=== PATIENT | female | born 1970 | race Caucasian/White ===

== ENCOUNTER 2017-04-29 15:26 | Emergency (ER) | payer MEDICAID ==
[~2017-04-29] VITALS: Ht 167.6 cm; Wt 72.6 kg
[2017-04-29 15:52] VITALS: BP 136/93
[2017-04-29] MEDS ORDERED: HYDROmorphone HCL 2 MG/ML VL IM ONE (16:00)
[2017-04-29] MEDS ORDERED: ONDANSETRON HCL 4 MG/2 ML VIAL IM ONE (16:00)
== END 2017-04-29 16:34 | disposition home or self-care (01) ==
LOC: ER 15:28
DX: S39.012A Strain of muscle, fascia and tendon of lower back, initial encounter (principal); J45.909 Unspecified asthma, uncomplicated; J44.9 Chronic obstructive pulmonary disease, unspecified; Z98.51 Tubal ligation status; F17.210 Nicotine dependence, cigarettes, uncomplicated; X58.XXXA Exposure to other specified factors, initial encounter; Y93.89 Activity, other specified; Y99.8 Other external cause status; Y92.89 Other specified places as the place of occurrence of the external cause
CPT/HCPCS: 96372; 99284; J1170; J2405

== ENCOUNTER 2020-08-15 10:54 | Emergency (ER) | payer MEDICAID ==
[~2020-08-15] VITALS: Ht 165.1 cm; Wt 74.8 kg
[2020-08-15 11:00] VITALS: BP 135/85
[2020-08-15] MEDS ORDERED: KETOROLAC TROMETH 60MG/2ML VIAL IM ONE (12:00)
[2020-08-15] MEDS ORDERED: methylPREDNISolone SOD SUCC 125 MG/2 ML VL IM ONE (12:00)
[2020-08-15] MEDS ORDERED: PRE1T GT (12:45)
== END 2020-08-15 12:58 | disposition home or self-care (01) ==
LOC: ER 10:54
DX: S29.012A Strain of muscle and tendon of back wall of thorax, initial encounter (principal); J44.9 Chronic obstructive pulmonary disease, unspecified; F17.210 Nicotine dependence, cigarettes, uncomplicated; X58.XXXA Exposure to other specified factors, initial encounter; Y93.89 Activity, other specified; Y92.89 Other specified places as the place of occurrence of the external cause; Y99.8 Other external cause status
CPT/HCPCS: 72040; 96372; 99284; J1885; J2930

== ENCOUNTER 2021-02-24 21:19 | Emergency (ER) | payer MEDICAID ==
[~2021-02-24] VITALS: Ht 165.1 cm; Wt 77.1 kg
[~2021-02-24 21:19] MED LIST: PRE1T GT
[2021-02-24 21:22] VITALS: BP 134/74
== END 2021-02-24 23:50 | disposition left against medical advice (07) ==
LOC: ER 21:24
DX: M79.605 Pain in left leg (principal); Z53.21 Procedure and treatment not carried out due to patient leaving prior to being seen by health care provider

== ENCOUNTER 2021-02-26 20:01 | Emergency (ER) | payer MEDICAID ==
[~2021-02-26] VITALS: Ht 165.1 cm; Wt 77.1 kg
[2021-02-26 20:03] VITALS: BP 96/63
[2021-02-26] MEDS ORDERED: KETOROLAC TROMETH 60MG/2ML VIAL IM ONE (22:00)
== END 2021-02-26 22:05 | disposition home or self-care (01) ==
LOC: ER 20:02
DX: M76.32 Iliotibial band syndrome, left leg (principal); J44.9 Chronic obstructive pulmonary disease, unspecified
CPT/HCPCS: 73552; 93971; 96372; 99284; J1885

== ENCOUNTER 2022-03-06 16:12 | Emergency (ER) | payer MEDICAID ==
[~2022-03-06] VITALS: Ht 165.1 cm; Wt 77.1 kg
[2022-03-06 16:16] VITALS: BP 129/85
[2022-03-06] MEDS ORDERED: SUMAtriptan SUCCINATE 6 MG/0.5 ML VL SC ONE (16:30)
[2022-03-06] MEDS ORDERED: SUMA50TA2 PO (17:04)
== END 2022-03-06 17:17 | disposition home or self-care (01) ==
LOC: ER 16:12
DX: G43.909 Migraine, unspecified, not intractable, without status migrainosus (principal)
CPT/HCPCS: 70450; 96372; 99284; J3030

== ENCOUNTER 2022-04-04 19:25 | Emergency (ER) | payer MEDICAID ==
[~2022-04-04] VITALS: Ht 165.1 cm; Wt 79.4 kg
[~2022-04-04 19:25] MED LIST changes: +SUMA50TA2 PO
[2022-04-04] MEDS ORDERED: ONDANSETRON ODT 4 MG TAB PO ONE (19:45)
[2022-04-04] MEDS ORDERED: HYDROmorphone HCL 2 MG/ML VL/or syr IM ONE (19:45)
[2022-04-04 19:56] VITALS: BP 109/48
[2022-04-04] MEDS ORDERED: HYDR-4902 PO (20:02)
== END 2022-04-04 20:05 | disposition home or self-care (01) ==
LOC: ER 19:25
DX: G43.909 Migraine, unspecified, not intractable, without status migrainosus (principal); J44.9 Chronic obstructive pulmonary disease, unspecified; F17.210 Nicotine dependence, cigarettes, uncomplicated; Z79.899 Other long term (current) drug therapy

== ENCOUNTER 2022-12-04 21:47 | Emergency (ER) | payer MEDICAID ==
[~2022-12-04] VITALS: Ht 165.1 cm; Wt 76.5 kg
[~2022-12-04 21:47] MED LIST changes: +HYDR-4902 PO
[2022-12-04] MEDS ORDERED: ONDANSETRON ODT 4 MG TAB PO ONE (22:15)
[2022-12-04] MEDS ORDERED: HYDROmorphone HCL 2 MG/ML VL/or syr IM ONE (22:15)
[2022-12-05] MEDS ORDERED: HYDROmorphone HCL 2 MG/ML VL/or syr IM ONE (00:30)
[2022-12-05 00:43] VITALS: BP 100/65
== END 2022-12-05 00:51 | disposition home or self-care (01) ==
LOC: ER 21:47
DX: R51.9 Headache, unspecified (principal); J44.9 Chronic obstructive pulmonary disease, unspecified; F17.210 Nicotine dependence, cigarettes, uncomplicated
CPT/HCPCS: 70450; 96372; 99285; J1170; Q0162

== ENCOUNTER 2023-01-27 09:34 | Inpatient (IN) | payer MEDICAID ==
[~2023-01-27] VITALS: Ht 165.1 cm; Wt 85.3 kg
[2023-01-27] MEDS ORDERED: PROMETHAZINE HCL 25 MG/ML 1ML IV ONE (10:30)
[2023-01-27] MEDS ORDERED: HYDROmorphone HCL 2 MG/ML VL/or syr IV ONE (10:30)
[2023-01-27 13:06] LABS: Basophils # (auto) 0 10 ^3/uL (0-0.2); Basophils % (auto) 0.7 % (0.0-2.0); Eosinophils # (auto) 0.1 10 ^3/uL (0-0.8); Hematocrit 40.1 % (36.0-46.0); Hemoglobin 13.2 g/dL (12.2-16.2); Lymphocytes # (auto) 2.5 10 ^3/uL (0.4-5.4); Lymphocytes % (auto) 41.6 % (10.0-50.0); Mean Corpuscular Hemoglobin 31.1 pg (28.0-32.0); Mean Corpuscular Hgb Conc. 32.9 g/dL (32.0-36.0); Mean Corpuscular Volume 94.4 fL (80.0-100.0); Monocytes # (auto) 0.4 10 ^3/uL (0-1.3); Monocytes % (auto) 6.7 % (0.0-12.0); Red Blood Cells 4.25 10^6/uL (4.0-5.20); Red Cell Distribution Width 13.3 % (11.8-14.3); White Blood Cell 5.9 10^3/uL (4.4-10.8)
[2023-01-27 13:41] LABS: Albumin 3.7 g/dL (3.4-5.0); Potassium 4.2 mmol/L (3.5-5.1)
[2023-01-27 13:45] LABS: Bilirubin, Total 0.4 mg/dL (0.2-1.0)
[2023-01-27 14:25] VITALS: BP 119/60
[2023-01-27] MEDS ORDERED: ALBUTEROL SULF 2.5 MG/0.5ML(0.5%) NEB SOLN NEB PRN (14:30)
[2023-01-27] MEDS ORDERED: SUMAtriptan SUCCINATE 25 MG TAB PO PRN (14:45)
[2023-01-27] MEDS ORDERED: ACETAMINOPHEN 325 MG TAB PO PRN (14:45)
[2023-01-27] MEDS ORDERED: MORPHINE SULFATE INJ 2 MG/ml SYRG IV PRN (14:45)
[2023-01-27] MEDS ORDERED: PANTOPRAZOLE 40 MG/10 ML VIAL INJ IV ONE (14:45)
[2023-01-27] MEDS ORDERED: NITROGLYCERIN 0.4 MG SL TAB SL PRN (14:45)
[2023-01-27] MEDS: SODIUM CHLORIDE 0.9% 1,000 ML IV SCH ×2 (14:50→21:30)
[2023-01-27 15:21] LABS: Cholesterol 181 mg/dL (< 200); HDL Cholesterol 48 mg/dL (40-59); LDL Cholesterol 117 mg/dL (< 100); Triglycerides 158 mg/dL (< 150)
[2023-01-27 16:22] LABS: Urine Bacteria FEW /hpf (None Seen); Urine Blood Negative /uL (Negative); Urine Specific Gravity 1.007 (1.001-1.035); Urine WBC 1 /hpf (0 - 5)
[2023-01-27] MEDS ORDERED: ASPirin 325 MG TAB PO ONE (18:00)
[2023-01-27] MEDS: HYDROcodone-ACET 5/325MG TAB PO PRN (19:30)
[2023-01-27] MEDS ORDERED: PROCHLORPERAZINE EDISYLATE 5 MG/ML 2ML VIAL IV PRN (21:30)
[2023-01-27] MEDS: ATORVASTATIN 20 MG TAB PO SCH (22:58)
[2023-01-28] MEDS: SODIUM CHLORIDE 0.9% 1,000 ML IV SCH ×3 (03:18→08:38)
[2023-01-28 06:32] LABS: Basophils # (auto) 0.1 10 ^3/uL (0-0.2); Basophils % (auto) 0.9 % (0.0-2.0); Eosinophils # (auto) 0.1 10 ^3/uL (0-0.8); Eosinophils % (auto) 0.8 % (0.0-7.0); Hematocrit 31.9 % (36.0-46.0); Hemoglobin 11.2 g/dL (12.2-16.2); Lymphocytes # (auto) 2.8 10 ^3/uL (0.4-5.4); Lymphocytes % (auto) 43.9 % (10.0-50.0); Mean Corpuscular Hemoglobin 32.4 pg (28.0-32.0); Mean Corpuscular Volume 92.6 fL (80.0-100.0); Monocytes # (auto) 0.4 10 ^3/uL (0-1.3); Monocytes % (auto) 6.9 % (0.0-12.0); Neutrophils # (auto) 3.1 10 ^3/uL (1.6-8.6); Neutrophils % (auto) 47.5 % (37.0-80.0); Red Blood Cells 3.45 10^6/uL (4.0-5.20); Red Cell Distribution Width 13.2 % (11.8-14.3); White Blood Cell 6.4 10^3/uL (4.4-10.8)
[2023-01-28 06:41] LABS: Potassium 4.1 mmol/L (3.5-5.1)
[2023-01-28 06:55] LABS: Albumin 3.1 g/dL (3.4-5.0); BUN/Creatinine Ratio 13.8 (10.0-20.0); Bilirubin, Total 0.5 mg/dL (0.2-1.0); Calcium 8.1 mg/dL (8.5-10.1); Total Protein 5.6 g/dL (6.4-8.2)
[2023-01-28] MEDS: ASPirin 81 mg TAB PO SCH (08:36)
[2023-01-28] MEDS: DexAMETHasone SOD PHOS 10MG/1ML VIAL INJ IV SCH (08:36)
[2023-01-28] MEDS: PANTOPRAZOLE 40 MG/10 ML VIAL INJ IV SCH (08:36)
[2023-01-28] MEDS: HYDROcodone-ACET 5/325MG TAB PO PRN (08:47)
[2023-01-28] MEDS: MAGNESIUM OXIDE 400 MG TAB PO SCH (11:27)
[2023-01-28 17:56] VITALS: BP 95/45
[2023-01-28] MEDS ORDERED: ASPI-543 PO (18:59)
[2023-01-28] MEDS: ATORVASTATIN 20 MG TAB PO SCH (21:59)
[2023-01-28 22:00] VITALS: BP 112/56
[2023-01-29 05:00] VITALS: BP_SYST 101; BP_SYST 105; BP_SYST 116; BP_DIAS 62; BP_DIAS 68; BP_DIAS 71
[2023-01-29] MEDS: SODIUM CHLORIDE 0.9% 1,000 ML IV SCH ×2 (06:40→09:19)
[2023-01-29 09:00] VITALS: BP 118/63
[2023-01-29] MEDS: DexAMETHasone SOD PHOS 10MG/1ML VIAL INJ IV SCH (09:15)
[2023-01-29] MEDS: PANTOPRAZOLE 40 MG/10 ML VIAL INJ IV SCH (09:15)
[2023-01-29] MEDS: MAGNESIUM OXIDE 400 MG TAB PO SCH (09:15)
[2023-01-29] MEDS: ASPirin 81 mg TAB PO SCH (09:15)
[2023-01-29] MEDS ORDERED: MAGN241.4 PO (10:10)
== END 2023-01-29 12:40 | disposition left against medical advice (07) | DRG 54 ==
LOC: ER 09:34 → TELE 14:42 → TELE-WESTW 01-28 20:09
PROVIDERS: ADMIT Nurse Practitioner Family; ATTEND Nurse Practitioner Acute Care
DX: G43.909 Migraine, unspecified, not intractable, without status migrainosus (principal); I67.1 Cerebral aneurysm, nonruptured; F17.210 Nicotine dependence, cigarettes, uncomplicated; J44.9 Chronic obstructive pulmonary disease, unspecified; R00.1 Bradycardia, unspecified; Z20.822 Contact with and (suspected) exposure to COVID-19; Z53.29 Procedure and treatment not carried out because of patient's decision for other reasons; Z80.9 Family history of malignant neoplasm, unspecified
CPT/HCPCS: 36415; 70450; 70545; 70551; 80053; 80061; 81001; 82962; 84443; 85025; 87426; 93005; 93306; 93886; 96374; 96375; 97163; C9113; G0378; J1100

== ENCOUNTER 2023-02-09 18:20 | Emergency (ER) | payer MEDICAID ==
[~2023-02-09] VITALS: Ht 165.1 cm; Wt 80.2 kg
[~2023-02-09 18:20] MED LIST changes: +ASPI-543 PO; +MAGN241.4 PO
[2023-02-09 19:31] LABS: Urine Bacteria NONE SEEN /hpf (None Seen); Urine Blood Negative /uL (Negative); Urine Specific Gravity 1.007 (1.001-1.035); Urine WBC <1 /hpf (0 - 5)
[2023-02-09] MEDS ORDERED: SODIUM CHLORIDE 0.9% 1,000 ML IVB ONE (19:45)
[2023-02-09] MEDS ORDERED: KETOROLAC TROMETH 30 MG/ML 1ML VIAL IV ONE (19:45)
[2023-02-09 20:29] LABS: Alcohol, Urine < 3.0 mg/dL (0-10); Amphetamine Screen, Urine NEGATIVE (NEGATIVE); Barbiturate Scree,Urine NEGATIVE (NEGATIVE); Benzodiazephine Screen, Urine NEGATIVE (NEGATIVE); Cannabinoid Screen, Urine NEGATIVE (NEGATIVE); Cocaine Screen, Urine NEGATIVE (NEGATIVE); Opiate Scree,Urine NEGATIVE (NEGATIVE); Phencyclidine Screen, Urine NEGATIVE (NEGATIVE)
[2023-02-09 21:18] LABS: Basophils # (auto) 0.1 10 ^3/uL (0-0.2); Basophils % (auto) 0.7 % (0.0-2.0); Eosinophils # (auto) 0.1 10 ^3/uL (0-0.8); Eosinophils % (auto) 1.7 % (0.0-7.0); Hematocrit 39.5 % (36.0-46.0); Hemoglobin 13.3 g/dL (12.2-16.2); Lymphocytes # (auto) 3.5 10 ^3/uL (0.4-5.4); Lymphocytes % (auto) 42.6 % (10.0-50.0); Mean Corpuscular Hemoglobin 31.7 pg (28.0-32.0); Mean Corpuscular Hgb Conc. 33.6 g/dL (32.0-36.0); Mean Corpuscular Volume 94.1 fL (80.0-100.0); Monocytes # (auto) 0.6 10 ^3/uL (0-1.3); Monocytes % (auto) 7.6 % (0.0-12.0); Neutrophils # (auto) 3.9 10 ^3/uL (1.6-8.6); Neutrophils % (auto) 47.4 % (37.0-80.0); Nucleated Red Blood Cells % 0.1 %; Red Cell Distribution Width 13.9 % (11.8-14.3); White Blood Cell 8.2 10^3/uL (4.4-10.8)
[2023-02-09 21:32] LABS: INR 0.97 (0.9-1.15); Partial Thromboplastin Time 25.6 sec (24.6-33.4)
[2023-02-09 21:35] LABS: Albumin 3.7 g/dL (3.4-5.0); BUN/Creatinine Ratio 15.8 (10.0-20.0); Calcium 9.1 mg/dL (8.5-10.1); Potassium 3.9 mmol/L (3.5-5.1)
[2023-02-09 21:37] LABS: Bilirubin, Total 0.3 mg/dL (0.2-1.0); Total Protein 7.2 g/dL (6.4-8.2)
[2023-02-09] MEDS ORDERED: IBUP800T27 PO (22:06)
[2023-02-09 22:50] VITALS: BP 136/68
[2023-02-09] MEDS ORDERED: KETOROLAC TROMETH 60MG/2ML VIAL IM ONE (23:00)
== END 2023-02-09 22:55 | disposition home or self-care (01) ==
LOC: ER 18:20
DX: K80.20 Calculus of gallbladder without cholecystitis without obstruction (principal); R10.2 Pelvic and perineal pain; J44.9 Chronic obstructive pulmonary disease, unspecified; Z98.51 Tubal ligation status
CPT/HCPCS: 36415; 74176; 80053; 80307; 81001; 83605; 83690; 84702; 85025; 85610; 85730; 96372; 99285; J1885

== ENCOUNTER 2023-07-03 22:48 | Emergency (ER) | payer MEDICAID ==
[~2023-07-03] VITALS: Ht 165.1 cm; Wt 82.2 kg
[~2023-07-03 22:48] MED LIST changes: +IBUP-1456 PO
[2023-07-03 23:38] VITALS: BP 124/67; PULSE 82; RESP 16; TEMP 97.4; O2SAT 96
[2023-07-04] MEDS ORDERED: DOXY-447 PO (00:34)
[2023-07-08] MEDS ORDERED: HYDR25CA PO (20:40)
[2023-07-08] MEDS ORDERED: FAMO20TA10 PO (20:40)
[2023-07-08] MEDS ORDERED: CLIN300C70 PO (20:40)
[2023-07-08] MEDS ORDERED: PRED20TA2 PO (20:40)
== END 2023-07-04 00:44 | disposition home or self-care (01) ==
LOC: ER 22:48
DX: L03.311 Cellulitis of abdominal wall (principal); S90.561A Insect bite (nonvenomous), right ankle, initial encounter; J44.9 Chronic obstructive pulmonary disease, unspecified; Z98.890 Other specified postprocedural states; Z79.1 Long term (current) use of non-steroidal anti-inflammatories (NSAID); Z79.82 Long term (current) use of aspirin; Z79.899 Other long term (current) drug therapy

== ENCOUNTER 2023-11-04 08:07 | Inpatient (IN) | payer MEDICAID ==
[~2023-11-04] VITALS: Ht 165.1 cm; Wt 80.0 kg
[~2023-11-04 08:07] MED LIST changes: +CLIN300C70 PO; +DOXY-447 PO; +FAMO20TA10 PO; +HYDR25CA PO; +PRED20TA2 PO
[2023-11-04 08:40] VITALS: PULSE 78; RESP 25; TEMP 98.1; O2SAT 99
[2023-11-04] MEDS ORDERED: PROMETHAZINE HCL 25 MG/ML 1ML IV ONE (08:45)
[2023-11-04] MEDS ORDERED: HYDROmorphone HCL 2 MG/ML VL/or syr IV ONE (08:45)
[2023-11-04 09:30] LABS: Basophils # (auto) 0.1 10 ^3/uL (0-0.2); Basophils % (auto) 0.9 % (0.0-2.0); Eosinophils # (auto) 0.1 10 ^3/uL (0-0.8); Eosinophils % (auto) 1.9 % (0.0-7.0); Hematocrit 42.5 % (36.0-46.0); Lymphocytes # (auto) 2.5 10 ^3/uL (0.4-5.4); Lymphocytes % (auto) 38.6 % (10.0-50.0); Mean Corpuscular Hemoglobin 31.8 pg (28.0-32.0); Mean Corpuscular Hgb Conc. 33.1 g/dL (32.0-36.0); Mean Corpuscular Volume 96.2 fL (80.0-100.0); Monocytes # (auto) 0.6 10 ^3/uL (0-1.3); Monocytes % (auto) 8.7 % (0.0-12.0); Neutrophils # (auto) 3.2 10 ^3/uL (1.6-8.6); Neutrophils % (auto) 49.9 % (37.0-80.0); Nucleated Red Blood Cells % 0.1 %; Red Blood Cells 4.41 10^6/uL (4.0-5.20); Red Cell Distribution Width 13.4 % (11.8-14.3); White Blood Cell 6.4 10^3/uL (4.4-10.8)
[2023-11-04] MEDS ORDERED: hydrALAZINE HCL 20 MG/ML VL IV ONE (09:30)
[2023-11-04 09:39] LABS: Chloride 109 mmol/L (98-107); Potassium 3.4 mmol/L (3.5-5.1); Sodium 143 mmol/L (136-145)
[2023-11-04 09:40] LABS: Anion Gap 9 (5-15); Calcium 9.7 mg/dL (8.5-10.1); Carbon Dioxide 25 mmol/L (20-30)
[2023-11-04 09:45] LABS: BUN/Creatinine Ratio 6.2 (10.0-20.0); Blood Urea Nitrogen < 5 mg/dL (9-23); Glucose 96 mg/dL (74-106)
[2023-11-04] MEDS ORDERED: ALBUTEROL SULF 2.5 MG/0.5ML(0.5%) NEB SOLN NEB PRN (12:00)
[2023-11-04] MEDS ORDERED: IPRATROPIUM BROM 0.5 MG/2.5ML INH SOL NEB PRN (12:00)
[2023-11-04] MEDS ORDERED: ONDANSETRON HCL 4 MG/2 ML VIAL IV PRN (12:00)
[2023-11-04] MEDS ORDERED: SODIUM CHLORIDE 0.9% 1,000 ML IV SCH (12:00)
[2023-11-04] MEDS ORDERED: HYDROmorphone HCL 2 MG/ML VL/or syr IV PRN (12:00)
[2023-11-04] MEDS ORDERED: POTASSIUM EFFERVESENT TAB 25 MEQ PO ONE (12:00)
[2023-11-04] MEDS ORDERED: DOCUSATE SOD 100 MG CAP PO PRN (12:00)
[2023-11-04] MEDS ORDERED: SUMAtriptan SUCCINATE 25 MG TAB PO PRN (12:30)
[2023-11-04 13:50] VITALS: BP 118/74; PULSE 103; RESP 24; O2SAT 93
[2023-11-04 14:01] LABS: Urine Bacteria FEW /hpf (None Seen); Urine Blood Negative /uL (Negative); Urine Clarity HAZY (Clear); Urine Mucus FEW (None Seen); Urine Protein, UAD Negative (Negative); Urine Specific Gravity 1.007 (1.001-1.035); Urine Urobilinogen Normal (Negative); Urine WBC 3 /hpf (0 - 5); Urine pH 5.5 (5.0-8.0)
[2023-11-04 14:04] LABS: Urine Color STRAW (Yellow)
[2023-11-04 14:20] VITALS: O2SAT 92
[2023-11-04] MEDS ORDERED: FAMOTIDINE 20 MG TAB PO SCH (22:00)
[2023-11-05] MEDS ORDERED: ASPirin-EC 81 mg tab PO SCH (10:00)
== END 2023-11-04 14:49 | disposition left against medical advice (07) | DRG 47 ==
LOC: ER 08:07 → OVERFLOW 12:03
PROVIDERS: ADMIT Nurse Practitioner Family; ATTEND Nurse Practitioner Family
DX: G45.9 Transient cerebral ischemic attack, unspecified (principal); J44.1 Chronic obstructive pulmonary disease with (acute) exacerbation; R51.9 Headache, unspecified; F17.210 Nicotine dependence, cigarettes, uncomplicated; I10 Essential (primary) hypertension; M47.9 Spondylosis, unspecified; E87.6 Hypokalemia; Z53.29 Procedure and treatment not carried out because of patient's decision for other reasons; Z80.8 Family history of malignant neoplasm of other organs or systems; Z83.3 Family history of diabetes mellitus
CPT/HCPCS: 36415; 70450; 80048; 81001; 85025; 96374; 96375; G0378

== ENCOUNTER 2025-06-15 11:53 | Emergency (ER) | payer MEDICAID, SELFPAY ==
[~2025-06-15] VITALS: Ht 165.1 cm; Wt 78.1 kg
[~2025-06-15 11:53] MED LIST changes: +CLIN1CAP70 PO; -CLIN300C70 PO; -DOXY-447 PO; +DOXY1CAP58 PO
--- NOTE | 2025-06-15 13:07 | ED.PDOC ---
Eye-HPI HPI Comments A 55 YEAR OLD FEMALE PRESENTS TO THE ED WITH COMPLAINT OF SORE THROAT, EAR PAIN, HEADACHE. PATIENT STATES SHE HAS BEEN EXPERIENCING A SORE THROAT, EAR PAIN AND A HEADACHE FOR THE PAST 2 DAYS. PATIENT REPORTS SHE WAS SENT TO THIS ED BY AN URGENT CARE DUE TO HER HISTORY OF A BRAIN INJURY IN THE PAST. PATIENT DENIES FEVER, CHILLS, SHORTNESS OF BREATH, CHEST PAIN, ABDOMINAL PAIN, NAUSEA, VOMITING, HEADACHE, OR OTHER COMPLAINTS. NO OTHER SYMPTOMS OR MODIFYING FACTORS AT THIS TIME. PATIENT IS ALERT, ORIENTED X 4, AND HAS STEADY GAIT. Chief Complaint: Headache Time Seen by MD: 12:16 Primary Care Provider: JEMMA Reviewed Notes: Nurses Notes, Medications, Allergies Allergies: Coded Allergies: NO KNOWN ALLERGIES (Unverified , 09/17/12) Home Meds Active Scripts Ibuprofen (Ibuprofen) 800 Mg Tab, 1 TAB PO TID, #30 TAB Prov:YOBANI HUNT 06/15/25 Amoxicillin & Pot Clavulanate (AUGMENTIN TABLET) 875 Mg Tb, 875 MG PO BID, #20 TAB Prov:YOBANI HUNT 06/15/25 Famotidine (PEPCID TABLET) 20 Mg Tb, 1 TAB PO BID for 10 Days, #20 TAB Prov:MATILDA JOLLY [employer] 07/08/23 Hydroxyzine Pamoate (Vistaril) 25 Mg Cap, 1 CAP PO Q8HR, #20 CAP 1 Refill As needed for itching Prov:MATILDA JOLLY [employer] 07/08/23 Prednisone (Prednisone) 20 Mg Tab, 1 TAB PO BID for 5 Days, #10 TAB Start tomorrow with food Prov:MATILDA JOLLY [employer]STRU[employer] 07/08/23 Clindamycin Hcl (Clindamycin Hcl) 300 Mg Cap, 1 CAP PO QID for 10 Days, #40 CAP Prov:SHANAEJUNELISSET Hendrickson [employer] 07/08/23 Doxycycline (Monohydrate) (Doxycycline) 100 Mg Cap, 100 MG PO BID for 7 Days, #14 CAP 0 Refills Prov:MK JOSEPH 07/04/23 Ibuprofen (Ibuprofen) 800 Mg Tab, 1 TAB PO TID PRN for 10 Days, #30 TAB Prov:SHASHANK BURGESS DO 02/09/23 Magnesium Oxide (Mag-Ox) 400 Mg Tb, 400 MG PO DAILY for 60 Days, #60 TAB Prov:OSWALDO LANDIS NP 01/29/23 Hydrocodone-Acetaminophen (Hydrocodone Bitartrate/AC 5-325 mg) 1 Tab Tab, 1 TAB PO Q6HP PRN for 7 Days, #28 TAB Prov:MJ DOUGHERTY MD 04/04/22 Sumatriptan Succinate (Imitrex) 50 Mg Tab, 50 MG PO TID PRN, #24 TAB Prov:YOBANI HUNT 03/06/22 Reported Medications Aspirin (Aspir-Low) 81 Mg Tab, 81 MG PO DAILY for 30 Days, MG 01/28/23 Prednisone (PREDNISONE) 1 Mg Tb, 1 MG GT, TAB 08/15/20 Information Source: Patient Mode of Arrival: Ambulatory Timing: Days Duration: Since onset, Days Prehospital treatment: None Quality: Pain, Red Lids: Normal Conjunctiva: Normal Cornea: Normal Pupils: Normal EOM: Normal Slit lamp exam: Normal Anterior chamber: Normal Mouth Location: Pharynx Mouth: Normal ENT Ear Exam: Normal, Red, Bulging, Dull, Normal Nose: Normal Sinuses: Normal Oropharynx: Tonsillar hypertrophy, Red Onset: Spontaneous Throat Exposed to: None History of: None Last Tetanus: Unknown Modifying factors: Nothing Associated signs and symptoms: Sore Throat, Ear Pain Past Medical History PAST MEDICAL HISTORY: Asthma, COPD Past Medical History (Other): BRAIN INJURY Surgical History: [employer]TL 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 History: No Pertinent EN[employer]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 History Family History Family History: Reviewed,noncontributory to illness, Family hx of Cancer Social History Smoker: Cigarettes Alcohol: Occasionally Drugs: Denies Drug Use Lives In: Home Constitutional: denies: chills, diaphoresis, fatigue, fever, malaise, sweats, weakness, others EENTM: reports: ear pain, ear ringing, throat pain, throat swelling; denies: blurred vision, double vision, ear bleeding, ear discharge, ear drainage, eye pain, eye redness, hearing loss, mouth pain, mouth swelling, nasal discharge, nose bleeding, nose congestion, nose pain, photophobia, tearing, voice changes, others Respiratory: denies: cough, hemoptysis, orthopnea, SOB at rest, shortness of breath, SOB with excertion, stridor, wheezing, others Cardiovascular: denies: chest pain, dizzy spells, diaphoresis, Dyspnea on exertion, edema, irregular heart beat, left arm pain, lightheadedness, palpitations, PND, syncope, others Gastrointestinal: denies: abdomen distended, abdominal pain, blood streaked bowels, constipated, diarrhea, dysphagia, difficulty swallowing, hematemesis, melena, nausea, poor appetite, poor fluid intake, rectal bleeding, rectal pain, vomiting, others Genitourinary: denies: abnormal vagina bleeding, burning, dyspareunia, dysuria, flank pain, frequency, hematuria, incontinence, pain, , vagina discharge, urgency, others Neurological: reports: headache; denies: dizziness, fainting, left sided numbness, left sided weakness, numbness, paresthesia, pre-existing deficit, right sided numbness, right sided weakness, seizure, speech problems, tingling, tremors, weakness, others Musculoskeletal: denies: back pain, gout, joint pain, joint swelling, muscle pain, muscle stiffness, neck pain, others Integumetry: denies: bruises, change in color, change in hair/nails, dryness, laceration, lesions, lumps, rash, wounds, others Allergic/Immunocompromised: denies: Difficulty Healing, Frequent Infections, Hives, Itching, others Hematologic/Lymphatic: denies: anemia, blood clots, easy bleeding, easy bruising, swollen glands, others Endocrine: denies: excessive hunger, excessive sweating, excessive thirst, excessive urination, flushing, intolerance to cold, intolerance to heat, unexplained weight gain, unexplained weight loss, others Psychiatric: denies: anxiety, bipolar disorder, depression, hopeless, panic disorder, schizophrenia, sleepless, suicidal, others All Other Systems: Reviewed and Negative Physical Exam General Appearance: No Apparent Distress, Normal HEENT: PERRL/EOMI, Pharyngeal Erythema (MILD TONSILIS SWELLING, NO EXUDATES. ), TM Abnormal (L) (WITH EFFUSION ), TM Abnormal (R) (WITH MILD EFFUSION. ) Neck: Full Range of Motion, Non-Tender, Normal, Normal Inspection Respiratory: Chest Non-Tender, Lungs Clear, No Accessory Muscle Use, No Respir atory Distress, Normal Breath Sounds Cardiovascular: No Edema, No JVD, No Murmur, No Gallop, Normal Peripheral Pulses, Regular Rate/Rhythm Breast Exam: Deferred Gastrointestinal: No Organomegaly, Non Tender, No Pulsatile Mass, Normal Bowel Sounds, Soft Genitalia: Deferred Pelvic: Deferred Rectal: Deferred Extremities: No calf tenderness, Normal capillary refill, Normal inspection, Normal range of motion, Non-tender, No pedal edema Musculoskeletal : Apperance: Normal Neurologic: Alert, hse specialist II-XII nml as Tested, No Motor Deficits, Normal Affect, Normal Mood, No Sensory Deficits Cerebellar Function: Normal Reflexes: Normal Skin: Dry, Normal Color, Warm Peripheral Pulses: 2+ carotid (R), 2+ carotid (L) Lymphatic: No Adenopathy Was a procedure done? Was a procedure done?: No EENT DIFF Eye: N/A Ear: Cerumen Impaction, Otitis Externa, Otitis Media, Pharyngitis, Sinusitis Nose: N/A Mouth: N/A Sore Throat: Pharyngitis, Streptococcal, Viral Pharyngitis, URI X-Ray, Labs, Meds, VS Vital Signs Date Time Temp Pulse Resp B/P (MAP) Pulse Ox O2 Delivery O2 Flow Rate FiO2 06/15/25 13:22 98.3 84 14 97/68 (78) 97 98.3 06/15/25 13:22 84 14 97 Room Air 06/15/25 11:56 97.7 97 16 104/68 78 97.7 EXAM: CT HEAD WITHOUT CONTRAST INDICATION: HEADACHE TECHNIQUE: CT images of the head were obtained without administration of IV contrast. CT scans at this facility use dose modulation, iterative reconstruction, and/or weight based dosing when appropriate to reduce radiation dose to as low as reasonably achievable. COMPARISON: CT HEAD WITHOUT CONTRAST on DOS: 01/17/24 FINDINGS: PARENCHYMA: No acute hemorrhage. There is no mass effect, midline shift, or herniation. There is preservation of the cruz white differentiation. VENTRICLES: No hydrocephalus. EXTRA-AXIAL SPACES: No extra-axial fluid collections. OTHER: The bony structures are intact. Mild scattered paranasal sinus mucosal thickening. IMPRESSION: 1. No CT evidence of an acute intracranial abnormality. ATED BY: JESSICA MENJIVAR MD DICTATED DATE/TIME: 06/15/25 1308 SIGNED BY: JESSICA MENJIVAR MD SIGNED DATE/TIME: 06/15/25 1308 CC: X-Ray, Labs, Meds, VS Comment EXTERNAL MEDICAL RECORDS REVIEWED: [NONE] INDEPENDENT HISTORIANS: [NONE] SOCIAL DETERMINANTS OF HEALTH: [NONE] LABS ORDERED: NONE REVIEWED AND INTERPRETED RESULTS: NONE IMAGING ORDERED: CT BRAIN TREATMENTS ORDERED: NONE PROCEDURES PERFORMED: NONE CRITICAL CARE TIME: NONE I HAVE DISCUSSED THE PATIENT WITH THE ATTENDING PHYSICIAN DR. PH[place] AND HE AGREES WITH THE PATIENT'S PLAN OF CARE AND DISPOSITION. BASED ON HISTORY OF PRESENT ILLNESS, AND PHYSICAL EXAM, PATIENT WILL BE DISCHARGED HOME. DISCUSSED PLAN FOR DISCHARGE HOME WITH RX [AUGMENTIN AND IBUPROFEN 800 MG]. MEDICATION WARNINGS GIVEN. SHARED DECISION MAKING: DISCUSSED WITH PATIENT THAT THEIR WORKUP WAS NORMAL. PATIENT INSTRUCTED TO FOLLOW UP WITH PRIMARY CARE PROVIDER IN 1-2 DAYS FOR RE- EVALUATION OF SYMPTOMS. PATIENT VERBALIZES UNDERSTANDING TO RETURN TO ED FOR NEW OR WORSENING SYMPTOMS OR IF FOLLOW UP WITH PCP CANNOT BE OBTAINED. PATIENT FEELS COMFORTABLE GOING HOME AT THIS TIME. ALL QUESTIONS ADDRESSED AT TIME OF DISCHARGE. Images Reviewed?: Images reviewed and evaluated by me Time of 1ST Reevaluation: 13:41 Reevaluation 1ST: Unchanged Patient Education/Counseling: Diagnosis, Treatment, Need For Follow Up Family Education/Counseling: Diagnosis, Treatment, Need For Follow Up Medical Screening: No EMC Exist At This Time SEPSIS Sepsis Screen Date sepsis recognized/suspect: Jun 15, 2025 Time Sepsis recognized/suspect: 1156 Recent Procedure: No On Antibiotic Therapy: No Respiratory Rate >20: No Heart Rate >90: No Temp<36 C (96.8 F) or >38.3 C: No SBP <90 or MAP <65 mmHG: No New Acute Mental Status Change: No Is the patient on CPAP, BIPAP,: No Physician Orders Head Without Contrast (06/15/25 12:35) Vital Signs Date Time Temp Pulse Resp B/P (MAP) Pulse Ox O2 Delivery O2 Flow Rate FiO2 06/15/25 13:22 98.3 84 14 97/68 (78) 97 98.3 06/15/25 13:22 84 14 97 Room Air 06/15/25 11:56 97.7 97 16 104/68 78 97.7 Departure 1 Departure Time of Disposition: 13:41 Impression: Primary Impression: Acute headache Qualified Codes: R51.9 - Headache, unspecified Additional Impressions: Otitis media of both ears Qualified Codes: H65.03 - Acute serous otitis media, bilateral Acute tonsillitis Qualified Codes: J03.90 - Acute tonsillitis, unspecified Disposition: HOME / SELF CARE / HOMELESS Condition: Stable Additional Instructions: FOLLOW-UP WITH PCP IN 1 TO 2 DAYS. TAKE MEDICATIONS PRESCRIBED. RETURN TO ED FOR ANY NEW OR WORSENING SYMPTOMS. e-Prescriptions Ibuprofen (Ibuprofen) 800 Mg Tab 1 TAB PO TID, #30 TAB Prov: YOBANI HUNT 06/15/25 Amoxicillin & Pot Clavulanate (AUGMENTIN TABLET) 875 Mg Tb 875 MG PO BID, #20 TAB Prov: YOBANI HUNT 06/15/25 Discharged With: Self Critical Care Note Critical Care Time?: No Stability Stability form required: No I personally scribed for YOBANI HUNT ([email or web address]) on 06/15/25 at 13:07. Electronically submitted by Kaiden Dennis ([employer]). I personally scribed for YOBANI HUNT ([email or web address]) on 06/15/25 at 13:18. Electronically submitted by Kaiden Dennis (SILVERIO). YOBANI HUNT Jun 15, 2025 13:07
--- NOTE | 2025-06-15 13:10 | DVH ---
EXAM: CT HEAD WITHOUT CONTRAST INDICATION: HEADACHE TECHNIQUE: CT images of the head were obtained without administration of IV contrast. CT scans at [facility] facility use dose modulation, iterative reconstruction, and/or weight based dosing when appropriate to reduce radiation dose to as low as reasonably achievable. COMPARISON: CT HEAD WITHOUT CONTRAST on DOS: 01/17/24 FINDINGS: PARENCHYMA: No acute hemorrhage. There is no mass effect, midline shift, or herniation. There is pres ervation of the cruz white differentiation. VENTRICLES: No hydrocephalus. EXTRA-AXIAL SPACES: No extra-axial fluid collections. OTHER: The bony structures are intact. Mild scattered paranasal sinus mucosal thickening. IMPRESSION: 1. No CT evidence of an acute intracranial abnormality.
[2025-06-15] MEDS ORDERED: IBUP-1456 PO (13:19)
[2025-06-15] MEDS ORDERED: AUG875T PO (13:19)
[2025-06-15 13:22] VITALS: BP 97/68; PULSE 84; RESP 14; TEMP 98.3; O2SAT 97
== END 2025-06-15 13:25 | disposition home or self-care (01) ==
LOC: ER 11:53
DX: J03.90 Acute tonsillitis, unspecified (principal); H66.93 Otitis media, unspecified, bilateral; R51.9 Headache, unspecified
CPT/HCPCS: 70450